=== PATIENT | male | born 1960 | race Caucasian/White ===

== ENCOUNTER 2021-10-15 09:13 | Emergency (ER) | payer OTHER ==
--- NOTE | 2021-10-15 10:31 | ERPHSYRPT ---
- History of Present Illness Source: patient Exam Limitations: no limitations Patient Subjective Stated Complaint: Weakness- COVID 19 Triage Nursing Assessment: Patient ambulated back to ED and transferred self to bed. Patient A+O x3. Patient's skin pink, warm and dry. Patient complains of weakness for two weeks and tested postive for COVID on 09/07/2021. Patient complains of fever as high as 103.0, cough, occasional SOB, bodyaches and fatigue. Lungs clear a/p saturnino. Patient denies pain or discomfort. Physician History: 61 yo wf +CV19 at [facility] 8 days ago presents w lethargy/cough wo coryza/N/V/D/chest pain. Pt has intermittant fever w mild arthralgias/myalgias. Pt vaccinated w Moderna x2 wo booster. He get mildly dyspneic w exertion. Timing/Duration: other (8 days) Cough Quality/Degree: dry cough Possible Cause: no prior episodes Modifying Factors: Improves With: exertion Allergies/Adverse Reactions: No Known Drug Allergies Allergy (Unverified 10/15/21 09:19) Hx Influenza Vaccination/Date Given: Yes Hx Pneumococcal Vaccination/Date Given: No Immunizations Up to Date: Yes Travel Risk - International Travel Have you traveled outside of the country in past 3 weeks: No - Coronavirus Screening Are you exhibiting any of the following symptoms?: Yes Symptoms: Fever, Cough: New Onset, Shortness of Breath, Headaches/Body Aches/Fatigue Close contact with a COVID-19 positive Pt in past 14-21 Days: Yes - Vaccine Status Have you recieved a Covid-19 vaccination: Yes Final Assembler: Moderna - Vaccination Dates Date of 2cond Vaccination (if applicable): january 2021 - Review of Systems Constitutional: No Symptoms, Fever, Chills, Fatigue, Lethargy, Malaise, Night Sweats Eyes: No Symptoms Ears, Nose, & Throat: No Symptoms Respiratory: Cough, Dyspnea on Exertion (ALARCON) Cardiac: No Chest Pain, No Edema, No Palpitations, No Syncope, No Orthopnea, No PND Abdominal/Gastrointestinal: No Symptoms, No Abdominal Pain, No Nausea, No Vomiting, No Diarrhea Genitourinary Symptoms: No Symptoms Musculoskeletal: No Symptoms, Arthralgias, Myalgias Skin: No Symptoms Neurological: No Symptoms Psychological: No Symptoms Endocrine: No Symptoms Hematologic/Lymphatic: No Symptoms Immunological/Allergic: No Symptoms - Past Medical History Pertinent Past Medical History: Yes Neurological History: No Pertinent History ENT History: No Pertinent History Cardiac History: High Cholesterol, Hypertension Respiratory History: No Pertinent History Endocrine Medical History: Diabetes Type II Musculoskeletal History: No Pertinent History GI Medical History: No Pertinent History History: No Pertinent History Psycho-Social History: No Pertinent History Male Reproductive Disorders: No Pertinent History - Past Surgical History Past Surgical History: No Neuro Surgical History: No Pertinent History Cardiac: No Pertinent History Respiratory: No Pertinent History Gastrointestinal: No Pertinent History Genitourinary: No Pertinent History Musculoskeletal: No Pertinent History Male Surgical History: No Pertinent History - Social History Smoking Status: Never smoker Exposure to second hand smoke: No Drug Use: none Patient Lives Alone: No Significant Family History: no pertinent family hx - Nursing Vital Signs Nursing Vital Signs: Initial Vital Signs Temperature 98.4 F 10/15/21 09:22 Pulse Rate 115 H 10/15/21 09:22 Respiratory Rate 19 10/15/21 09:22 Blood Pressure 140/90 10/15/21 09:22 O2 Sat by Pulse Oximetry 95 10/15/21 09:22 Pain Scale Pain Intensity 0 Hypertensive/tachy - Physical Exam General Appearance: no apparent distress Eye Exam: PERRL/EOMI, eyes nml inspection Ears, Nose, Throat Exam: normal ENT inspection, TMs normal, pharynx normal, moist mucous membranes Neck Exam: normal inspection, non-tender, supple, full range of motion, No meningismus, No mass, No Brudzinski, No Kernig's, No carotid bruit Respiratory Exam: airway intact, crackles/rales (Mild B bases), No respiratory distress Cardiovascular Exam: tachycardia, No murmur Gastrointestinal/Abdomen Exam: soft, normal bowel sounds Rectal Exam: black stool Back Exam: normal inspection, CVA tenderness, No vertebral tenderness Extremity Exam: normal inspection, normal range of motion Neurologic Exam: alert, oriented x 3, cooperative, polysomnography tech II-XII nml as tested, normal mood/affect, nml cerebellar function, nml station & gait, sensation nml, No motor deficits, No sensory deficit Skin Exam: normal color, warm, dry Lymphatic Exam: No adenopathy SpO2 Interpretation: normal SpO2: 95 O2 Delivery: Room Air - Course Nursing assessment & vital signs reviewed: Yes EKG Interpreted by Me: RATE (NSR/R92/RBBB-LAFB/Borderline prolonged QTc/No acute ST-Twave changes) - Radiology Exams Chest X-ray Interpretation: Discussed w/ radiologist (Diffuse B airspace dz) Ordered Tests: Active Orders 24 hr Category Date Time Status EKG-ER Only STAT Care 10/15/21 10:25 Completed CHEST 1 VIEW (PORTABLE) Stat Exams 10/15/21 10:26 Completed CBC W DIFF Stat Lab 10/15/21 10:30 Completed CMP Stat Lab 10/15/21 10:30 Completed NT PRO BNP Stat Lab 10/15/21 10:30 Completed PROTIME WITH INR Stat Lab 10/15/21 10:30 Completed PTT Stat Lab 10/15/21 10:30 Completed TROPONIN Q3H Lab 10/15/21 10:30 Completed TROPONIN Q3H Lab 10/15/21 13:30 Ordered Medication Summary Discontinued Medications Generic Name Dose Route Start Last Admin Trade Name Freq PRN Reason Stop Dose Admin Sodium Chloride 1,000 mls @ 999 mls/hr 10/15/21 11:36 10/15/21 11:39 Sodium Chloride 0.9% 1000 Ml IV 10/15/21 12:36 999 mls/hr .Q1H1M STA Administration Sodium Chloride Confirm 10/15/21 11:37 Sodium Chloride 0.9% 1000 Ml Administered 10/15/21 11:38 Dose 1,000 mls @ ud .ROUTE .STK-MED ONE Lab/Rad Data: Laboratory Result Diagrams 10/15/21 10:30 10/15/21 10:30 Laboratory Results 10/15/21 10/15/21 10/15/21 Range/Units 10:30 10:30 10:30 WBC (4.0-10.5) K/mm3 RBC (4.1-5.6) M/mm3 Hgb (12.5-18.0) gm/dl Hct (42-50) % MCV (78-100) fl MCH (26-32) pg MCHC (32-36) g/dl RDW (11.5-14.0) % Plt Count (150-450) K/mm3 MPV (7.5-11.0) fl Gran % (36.0-66.0) % Eos # (Auto) (0-0.5) Absolute Lymphs (auto) (1.0-4.6) Absolute Monos (auto) (0.0-1.3) Lymphocytes % (24.0-44.0) % Monocytes % (0.0-12.0) % Eosinophils % (0.00-5.0) % Basophils % (0.0-0.4) % Absolute Granulocytes (1.4-6.9) Basophils # (0-0.4) PT 14.7 H (9.4-12.5) SECONDS INR 1.25 (0.8-3.0) APTT 29.8 (25.1-36.5) SECONDS Sodium 135 L (137-145) mmol/L Potassium 4.4 (3.5-5.1) mmol/L Chloride 99 (98-107) mmol/L Carbon Dioxide 21 L (22-30) mmol/L Anion Gap 18.3 H (5-15) MEQ/L BUN 28 H (9-20) mg/dL Creatinine 1.33 H (0.66-1.25) mg/dL Estimated GFR 57.7 ML/MIN Glucose 220 H (74-106) mg/dL Calcium 8.2 L (8.4-10.2) mg/dL Total Bilirubin 1.50 H (0.2-1.3) mg/dL AST 49 (17-59) U/L ALT 32 (0-50) U/L Alkaline Phosphatase 85 (38-126) U/L Troponin I < 0.012 (0.000-0.034) ng/mL NT-Pro-B Natriuret Pep 58.2 (0-900) pg/mL Serum Total Protein 6.4 (6.3-8.2) g/dL Albumin 3.7 (3.5-5.0) g/dL 10/15/21 Range/Units 10:30 WBC 8.8 (4.0-10.5) K/mm3 RBC 3.97 L (4.1-5.6) M/mm3 Hgb 13.0 (12.5-18.0) gm/dl Hct 38.2 L (42-50) % MCV 96.2 (78-100) fl MCH 32.7 H (26-32) pg MCHC 34.0 (32-36) g/dl RDW 13.8 (11.5-14.0) % Plt Count 108 L (150-450) K/mm3 MPV 11.3 H (7.5-11.0) fl Gran % 61.0 (36.0-66.0) % Eos # (Auto) 0.16 (0-0.5) Absolute Lymphs (auto) 2.85 (1.0-4.6) Absolute Monos (auto) 0.39 (0.0-1.3) Lymphocytes % 32.6 (24.0-44.0) % Monocytes % 4.5 (0.0-12.0) % Eosinophils % 1.8 (0.00-5.0) % Basophils % 0.1 (0.0-0.4) % Absolute Granulocytes 5.34 (1.4-6.9) Basophils # 0.01 (0-0.4) PT (9.4-12.5) SECONDS INR (0.8-3.0) APTT (25.1-36.5) SECONDS Sodium (137-145) mmol/L Potassium (3.5-5.1) mmol/L Chloride (98-107) mmol/L Carbon Dioxide (22-30) mmol/L Anion Gap (5-15) MEQ/L BUN (9-20) mg/dL Creatinine (0.66-1.25) mg/dL Estimated GFR ML/MIN Glucose (74-106) mg/dL Calcium (8.4-10.2) mg/dL Total Bilirubin (0.2-1.3) mg/dL AST (17-59) U/L ALT (0-50) U/L Alkaline Phosphatase (38-126) U/L Troponin I (0.000-0.034) ng/mL NT-Pro-B Natriuret Pep (0-900) pg/mL Serum Total Protein (6.3-8.2) g/dL Albumin (3.5-5.0) g/dL - Progress Progress: improved Air Movement: good Progress Note: 10/15/21 17:10 1L NS bolus w improvement in symptoms Counseled pt/family regarding: lab results, diagnosis, need for follow-up, rad results - Departure Departure Disposition: Home Clinical Impression: COVID-19, Dehydration Condition: Stable Critical Care Time: No Referrals: JOZEF OLIVEROS MD [Primary Care Provider] - Follow up/PCP as directed Instructions: Coronavirus Disease 2019 (COVID-19) (DC) Additional Instructions: Get a pulse oximeter and monitor oxygen saturation 2-3 times a day VitaminD 10,000 units a day Zinc 50mg a day Pulmicort 2puff twice a day Luvox 1tablet twice a day Fluids Follow up with your family Prescriptions: Budesonide [Pulmicort Flexhaler] 180 mcg IH BID #1
--- NOTE | 2021-10-15 10:50 | XRAY ---
Indication: Weakness. Suspect Covid 19. Comparison: None Portable chest demonstrates mild diffuse bilateral patchy airspace disease without consolidation/large effusion. Heart not enlarged. Bony thorax intact with mild degenerative changes.
[2021-10-15 11:00] LABS: Absolute Neutrophil Ct (ANC) 5.34 (1.4-6.9); Basophil (Absolute #) 0.01 (0-0.4); Eosinophil % 1.8 % (0.00-5.0); Eosinophil (Absolute #) 0.16 (0-0.5); Hematocrit 38.2 % (42-50); Lymphocyte (Absolute #) 2.85 (1.0-4.6); Lymphocytes % 32.6 % (24.0-44.0); Mean Cell Volume 96.2 fl (78-100); Mean Corpuscular Hemoglobin 32.7 pg (26-32); Mean Platelet Volume 11.3 fl (7.5-11.0); Monocyte (Absolute #) 0.39 (0.0-1.3); Monocytes % 4.5 % (0.0-12.0); Platelet Count 108 K/mm3 (150-450); Red Blood Count 3.97 M/mm3 (4.1-5.6); Red Cell Distribution Width 13.8 % (11.5-14.0); White Blood Count 8.8 K/mm3 (4.0-10.5)
[2021-10-15 11:03] LABS: INR 1.25 (0.8-3.0); PROTIME 14.7 SECONDS (9.4-12.5)
[2021-10-15 11:06] LABS: PTT 29.8 SECONDS (25.1-36.5)
[2021-10-15 11:20] LABS: ALBUMIN 3.7 g/dL (3.5-5.0); ANION GAP 18.3 MEQ/L (5-15); BILIRUBIN,TOTAL 1.5 mg/dL (0.2-1.3); Calcium 8.2 mg/dL (8.4-10.2); Creatinine 1 1.33 mg/dL (0.66-1.25); EST GLOMERULAR FILTRATION RATE 57.7 ML/MIN; NT PRO BNP 58.2 pg/mL (0-900); Potassium 4.4 mmol/L (3.5-5.1); Total Protein 6.4 g/dL (6.3-8.2)
[2021-10-15] MEDS ORDERED: Sodium Chloride 0.9% 1000 ML 1,000 ML IV STA (11:36)
[2021-10-15] MEDS ORDERED: Sodium Chloride 0.9% 1000 ML 1,000 ML ONE (11:37)
[2021-10-15 12:44] VITALS: BP 128/77; PULSE 80
[2021-10-15 17:12] VITALS: O2SAT 95
== END 2021-10-15 12:44 | disposition home or self-care (01) ==
LOC: ED 09:13
DX: U07.1 COVID-19 (principal); E86.0 Dehydration; R53.83 Other fatigue; R05.9 Cough, unspecified; R50.9 Fever, unspecified; M79.10 Myalgia, unspecified site; E78.5 Hyperlipidemia, unspecified; I10 Essential (primary) hypertension; E11.9 Type 2 diabetes mellitus without complications
CPT/HCPCS: 36000; 36415; 71045; 80053; 83880; 84484; 85025; 85610; 85730; 93005; 99284

== ENCOUNTER 2021-10-18 17:39 | Emergency (ER) | payer OTHER ==
--- NOTE | 2021-10-18 17:47 | ERPHSYRPT ---
- History of Present Illness Time Seen by Provider: 10/18/21 17:47 Source: patient Exam Limitations: no limitations Physician History: This is a 61-year-old white male patient of Dr. Oliveros who was diagnosed 2 weeks ago with positive COVID-19 infection. In the last couple weeks he is been feeling weak with mild shortness of air and it does not seem to be improving much. Patient was seen in this emergency department on 10/15/2021 because of weakness and the work-up was negative/not emergent. His troponin and BNP were normal on that date. Patient does not complain of chest pain or abdominal pain. His main complaints have been weakness and mild shortness of breath. Patient was seen at Dr. Oliveros's office today and labs were obtained at 1500 today. His electrolytes are within normal limits. He had a normal troponin and BNP level. His D-dimer was elevated over thousand. Patient was contacted by Dr. Oliveros's office and they sent him here to obtain a CTA of the chest. Patient is a type II diabetic on Metformin he has elevated cholesterol and hypertension. Patient has no known drug allergies. Timing/Duration: week(s) (2), other (Only improved slightly in the last 2 weeks) Severity: mild (Mild to moderate) Associated Symptoms: shortness of breath (Mild), weakness, No nausea, No vomiting, No abdominal pain, No cough, No chest pain Allergies/Adverse Reactions: No Known Drug Allergies Allergy (Verified 10/18/21 18:02) Home Medications: Atorvastatin Calcium [Lipitor 20MG Tablet] 1 ea DAILY 10/18/21 [History] Budesonide [Pulmicort Flexhaler] 1 ea BID 10/18/21 [History] Fluvoxamine Maleate 100 ea BID 10/18/21 [History] Meloxicam 15 mg [Meloxicam 15 MG] 1 ea DAILY 10/18/21 [History] Metformin HCl 500 mg [Glucophage 500 MG] 1 ea BID 10/18/21 [History] dexAMETHasone [Dexamethasone] 1 ea BID 10/18/21 [History] Hx Influenza Vaccination/Date Given: Yes Hx Pneumococcal Vaccination/Date Given: No Travel Risk - International Travel Have you traveled outside of the country in past 3 weeks: No - Coronavirus Screening Are you exhibiting any of the following symptoms?: No Close contact with a COVID-19 positive Pt in past 14-21 Days: No - Vaccine Status Have you recieved a Covid-19 vaccination: Yes Corporate Banking Officer: Moderna - Vaccination Dates Date of 2cond Vaccination (if applicable): january 2021 - Review of Systems Constitutional: Weakness Eyes: No Symptoms Ears, Nose, & Throat: No Symptoms Respiratory: Dyspnea (Mild) Cardiac: No Symptoms Abdominal/Gastrointestinal: No Symptoms Genitourinary Symptoms: No Symptoms Musculoskeletal: No Symptoms Skin: No Symptoms Neurological: No Symptoms Psychological: No Symptoms Endocrine: No Symptoms Hematologic/Lymphatic: No Symptoms Immunological/Allergic: No Symptoms All Other Systems: Reviewed and Negative - Past Medical History Pertinent Past Medical History: Yes Neurological History: No Pertinent History ENT History: No Pertinent History Cardiac History: High Cholesterol, Hypertension Respiratory History: No Pertinent History Endocrine Medical History: Diabetes Type II Musculoskeletal History: No Pertinent History GI Medical History: No Pertinent History History: No Pertinent History Psycho-Social History: No Pertinent History Male Reproductive Disorders: No Pertinent History - Past Surgical History Past Surgical History: No Neuro Surgical History: No Pertinent History Cardiac: No Pertinent History Respiratory: No Pertinent History Gastrointestinal: No Pertinent History Genitourinary: No Pertinent History Musculoskeletal: No Pertinent History Male Surgical History: No Pertinent History - Social History Smoking Status: Never smoker Exposure to second hand smoke: No Drug Use: none Patient Lives Alone: No Significant Family History: no pertinent family hx - Nursing Vital Signs Nursing Vital Signs: Initial Vital Signs Temperature 98.0 F 10/18/21 17:41 Pulse Rate 80 10/18/21 17:41 Respiratory Rate 22 10/18/21 17:41 Blood Pressure 154/90 10/18/21 17:41 O2 Sat by Pulse Oximetry 97 10/18/21 17:41 Pain Scale Pain Intensity 0 - Physical Exam General Appearance: no apparent distress, alert, anxiety Eye Exam: PERRL/EOMI, eyes nml inspection Ears, Nose, Throat Exam: normal ENT inspection, moist mucous membranes Neck Exam: normal inspection, non-tender, supple, full range of motion Respiratory Exam: normal breath sounds, lungs clear, airway intact, No chest tenderness, No respiratory distress Cardiovascular Exam: regular rate/rhythm, normal heart sounds, normal peripheral pulses Gastrointestinal/Abdomen Exam: soft, normal bowel sounds, No tenderness Rectal Exam: not done Back Exam: normal inspection, normal range of motion, No CVA tenderness, No vertebral tenderness Extremity Exam: normal inspection, normal range of motion, pelvis stable Neurologic Exam: alert, oriented x 3, cooperative, analysis evaluator II-XII nml as tested, normal mood/affect, nml cerebellar function, nml station & gait, sensation nml Skin Exam: normal color, warm, dry Lymphatic Exam: No adenopathy SpO2 Interpretation: normal O2 Delivery: Room Air - Course Nursing assessment & vital signs reviewed: Yes Ordered Tests: Active Orders 24 hr Category Date Time Status CHEST WITH CONTRAST [CT] Stat Exams 10/18/21 18:39 Taken - Progress Progress: unchanged Progress Note: 10/18/21 19:36 CTA of chest shows negative for pulmonary embolus. There is moderate diffuse bilateral patchy infiltrates left greater than right favoring Covid pneumonia. (This patient has recently been diagnosed with COVID-19 infection) 10/18/21 19:37 Medical decision making: This patient has weakness and some mild shortness of breath. He is oxygenating on room air 95 to 97%. He is on steroids at this time. He recently had a negative troponin and BNP. His CTA of the chest does not show any pulmonary emboli. Patient will be discharged to home and follow-up with Dr. Oliveros as an outpatient. Counseled pt/family regarding: diagnosis, need for follow-up, rad results - Departure Departure Disposition: Home Clinical Impression: Pneumonia due to COVID-19 virus Condition: Stable Critical Care Time: No Referrals: JOZEF OLIVEROS MD [Primary Care Provider] - Follow up/PCP as directed Additional Instructions: Take all your medications as prescribed. Follow-up with Dr. Oliveros for further management. Return to emergency department if your symptoms worsen.
[2021-10-18 19:51] VITALS: BP 138/89; PULSE 80; O2SAT 92
--- NOTE | 2021-10-19 07:49 | XRAY ---
Indication: Short of breath. Elevated d-dimer. Positive Covid 19. Multiple contiguous axial images obtained through the chest using 100 cc Isovue 370 contrast and PE protocol. Comparison: None There is adequate opacification of the pulmonary arteries to include the lobar and segmental branches. No pulmonary embolus. Heart not enlarged. Aorta is minimally arteriosclerotic without aneurysm/dissection. [place] subcarinal and left hilar calcified nodes. No pathologic mediastinal/hilar lymphadenopathy. Lungs demonstrates diffuse bilateral patchy consolidating airspace disease, left greater than right. No effusion or pneumothorax. Bony thorax intact with osteopenia and flowing osteophytes throughout the spine. Limited upper abdomen demonstrates 16.9 cm splenomegaly. Impression: 1. Negative pulmonary embolus. 2. Diffuse bilateral patchy consolidating airspace disease favoring Covid 19 pneumonia. 3. Incidental splenomegaly, chronic bony findings, and old granulomatous disease.
== END 2021-10-18 19:58 | disposition home or self-care (01) ==
LOC: ED 17:39
DX: U07.1 COVID-19 (principal); J12.82 Pneumonia due to coronavirus disease 2019; R79.1 Abnormal coagulation profile; R53.1 Weakness; R06.02 Shortness of breath; I10 Essential (primary) hypertension; E78.5 Hyperlipidemia, unspecified; E11.9 Type 2 diabetes mellitus without complications; Z79.84 Long term (current) use of oral hypoglycemic drugs; Z79.52 Long term (current) use of systemic steroids; Z79.899 Other long term (current) drug therapy
CPT/HCPCS: 71260; 99284